=== PATIENT | male | born 1985 | race Caucasian/White ===

== ENCOUNTER 2019-03-08 07:14 | Inpatient (IN) | payer OTHER ==
[~2019-03-08] VITALS: Ht 190.5 cm; Wt 97.1 kg
[2019-03-08] VITALS (18 sets, daily range): BP systolic 103–157; BP diastolic 40–91
[2019-03-08 08:01] LABS: ABSOLUTE NEUTROPHILS 9.2 thou/uL (1.4-8.2); BASOPHILS 0.2 % (0.0-2.0); EOSINOPHILS 0.1 % (0.0-3.0); HEMOGLOBIN 16.7 gm/dL (14.0-18.0); LYMPHOCYTES 13.9 % (24.0-44.0); MCH 31.8 pg (26.0-34.0); MCHC 34.8 g/dL (28.0-37.0); MCV 91.2 fL (80.0-100.0); MONOCYTES 7.9 % (1.0-8.0); PLATELET COUNT 204 thou/uL (150-400); POLYS 77.9 % (36.0-66.0); RBC 5.26 mil/uL (4.50-6.00); RDW 13.7 % (10.5-14.5); WBC 11.9 thou/uL (4.0-11.0)
[2019-03-08 08:16] LABS: CALCIUM 10.4 mg/dL (8.5-10.1); CREATININE 1.5 mg/dL (0.7-1.3); POTASSIUM 4.1 mmol/L (3.5-5.1)
[2019-03-08 08:17] LABS: AMP/METHAMP POSITIVE (Negative); BARBITURATES Negative (Negative); BENZODIAZEPINES Negative (Negative); COCAINE Negative (Negative); METHADONE Negative (Negative); OPIATES Negative (Negative); PCP Negative (Negative)
--- NOTE | 2019-03-08 08:18 | NUR ---
IN PREP FOR INTUBATION ERP ORDERED 20 ETOMITADE, GIVEN AT APPROX 0809 AND 100 SUCCS GIVEN IMMEDIATELY AFTER
[2019-03-08 08:32] LABS: ALBUMIN 4.9 g/dL (3.4-5.0); MAGNESIUM 2.2 mg/dL (1.8-2.4); SALICYLATE 2.8 mg/dL (2.8-20.0); TOTAL BILIRUBIN 1.6 mg/dL (<0.1-1.0); TOTAL PROTEIN 8.2 g/dL (6.4-8.2)
[2019-03-08 08:41] LABS: BE(vivo) -4.3 mmol/L (-2 to +3); HCO3 22.5 mmol/L (22.0-26.0); PCO2 47.6 mmHg (35.0-45.0); PO2 265.6 mmHg (80.0-100.0); pH 7.293 (7.360-7.450); sO2 99.5 % (92.0-98.0)
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
--- NOTE | 2019-03-08 17:58 | NUR ---
PT ARRIVED FROM ED AT APPROX 1130. PT IS ON VENT WITH SEDATION AND IN SOFT WRIST RESTRAINTS. ED STATED ANKLE RESTRAINTS WERE REMOVED BEFORE ARRIVAL TO ICU. RCIEVED NEW ORDER FOR WRIST ONLY RESTRAINTS. VSS AND PT IS ABLE TO MAINTAIN 02 SAT >90 ON VENT SETTINGS. ASSESSMENT CHARTED. COMPLETED ADMISSION TO BEST OF ABILITY. PT UNABLE TO ANSWER QUESTIONS AT THIS TIME AND NO KNOWN FAMILY AT THIS TIME. AT APPROX 1400, VENT ALARM BEGAN TO SAUND AND WHEN RN ENTERED ROOM, PT HAS EXTUBATED HIMSELF. VSS. AIRWAY INTACT AND UNCOMPROMISED. PT PLACED ON 10L NC BY RT. PHYSICIAN NOTIFIED. SEDATION STOPPED, INCIDENT REPORT FILED. PT CALM BUT DOES NOT MAKE SENSE WHEN ASKED QUESTIONS. PT BEGAN TO GET VERY AGITATED, KICKING, AND YELLING. PRECEDEX GTT STARTED. WILL CONTINUE TO TITRATE. PT REMAINS IN RESTRAINTS FOR SAFETY. GOGO COATES DD. WILL CONTINUE TO MONITOR.
[2019-03-09] VITALS (18 sets, daily range): BP systolic 104–135; BP diastolic 52–86
--- NOTE | 2019-03-09 00:05 | NUR ---
Pt severe agitation with tremors with hallucinations with possible withdrawels from etoh unknown d/t pt's confused psychosis. Renetta Posey paged at [phone] 03/08/19 for orders for CWAL protocol. CWAL protocol initiated with provider aware.
[2019-03-09 06:09] LABS: CREATININE 1.2 mg/dL (0.7-1.3); POTASSIUM 4.4 mmol/L (3.5-5.1)
--- NOTE | 2019-03-09 09:01 | EKG ---
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 : 1985 Requested By: Junior Hope Order Number: [id number] MD: Carmelo Carvalho Measurements Intervals [place] Rate: 142 P: 49 MO: 106 QRS: 89 QRSD: 107 T: 54 QT: 394 QTc: 606 Interpretive Statements Sinus tachycardia RSR' in V1 or V2, probably normal variant Prolonged QT interval No previous ECG available for comparison Electronically Signed On 03-09-2019 9:01:21 CDT by Carmelo Carvalho [email or web address] ��������������������������������������������� <ELECTRONICALLY SIGNED> ���������������������������������������� By: Carmelo Carvalho MD, [facility] ��������������������������������������������� 03/09/19900 7 7 Carmelo Carvalho MD, [facility] /EPI
--- NOTE | 2019-03-09 10:37 | NUR ---
CARMEN was provided with name and contact info for pt's mother, Maria Isabel ([phone]) by nursing. Pt extubated himself yesterday afternoon. Pt unable to answer questions at this time, due to condition. Pt's photo ID and [place] [employer] ID card on chart. SW spoke with Maria Isabel via phone. Pt's mother was aware of circumstances that led to pt being brought to [facility]. Pt's mother states that pt has a hx of bipolar and depression. Pt was diagnosed when he was a teenager. Pt was living in transitional housing in [facility] and moved into his own apt about 2 weeks ago. Pt's mother states she does not know his new address. Pt's mother does state that pt does not have health insurance. He has been going to a clinic in [facility] for Hep C medical care and medications. Pt's mother states that pt's former girlfriend, Ariadne, should not be given info regarding pt's condition. They met while in rehab and broke up Aug/Sep of last year. Pt's mother reports that she spoke with pt about a week ago via phone, and he appeared to be impaired at that time. Per pt's mother, pt becomes agressive and agitated when he is under the influence of drugs/ETOH. CARMEN provided pt's mother with contact info, and she will contact CARMEN with pt's SS# and contact info for the transitional housing, where pt was staying. CARMEN is following to assist as needed with discharge planning.
--- NOTE | 2019-03-09 17:00 | EKG ---
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 : 1985 Requested By: Ariana Nesbitt Order Number: [id number] MD: Carmelo Carvalho Measurements Intervals [place] Rate: 60 P: 47 CA: 196 QRS: 43 QRSD: 112 T: 27 QT: 428 QTc: 428 Interpretive Statements Sinus rhythm Right ventricular conduction delay No previous ECGs available for comparison Electronically Signed On 03-09-2019 17:00:01 CDT by Carmelo Carvalho [email or web address] ��������������������������������������������� <ELECTRONICALLY SIGNED> ���������������������������������������� By: Carmelo Carvalho MD, [facility] ��������������������������������������������� 03/09/19 1700 1026 1026 Carmelo Carvalho MD, [facility] /EPI
--- NOTE | 2019-03-09 20:05 | NUR ---
ASSUMED CARE OF PT AT APPROX 0700. PT IS ALERT AND NOT ORIENTED. PT IS REPETITIVE AND PARANOID. PT IS RESTING MOST OF DAY WITH PRECEDEX GTT IN PLACE BUT EASILY ARROUSED, WHEN HE THEN STARTS MAKING CONVERSATION THAT DOES NOT MAKE SENSE. CONTACTED MOTHER AND LET HER KNOW SON WAS IN HOSPITAL AND UPDATED ON POC. SHE CAME TO VISIT TODAY WITH PT FATHER. PT WAS HAPPT TO SEE THEM. PT VERY VERY THIRSTY ALL DAY BUT NOT INTERESTED IN FOOD. REMAINS IN RESTRAINTS FOR SAFETY. GOGO TO DD. WILL CONT. TO MONITOR.
[2019-03-10] VITALS (25 sets, daily range): BP systolic 91–129; BP diastolic 36–66
[2019-03-10 06:13] LABS: ALBUMIN 3.2 g/dL (3.4-5.0); CALCIUM 8.6 mg/dL (8.5-10.1); CREATININE 0.8 mg/dL (0.7-1.3); MAGNESIUM 2.3 mg/dL (1.8-2.4); POTASSIUM 3.7 mmol/L (3.5-5.1); TOTAL PROTEIN 5.8 g/dL (6.4-8.2)
--- NOTE | 2019-03-10 06:34 | NUR ---
Pt rested well through the night with precedex gtt going. PRN ativan given for breakthrough restlessness with desired effect achieved. VS stable and SpO2 adequate on 4L of O2. Taking large amounts of PO fluids with no c/o nausea and no BM observed this shift. Urine output scant and stephenson catheter irrigated with good return of the saline flush. Will report to next RN. Am lab results noted, continue with POC.
--- NOTE | 2019-03-10 10:41 | NUR ---
CARMEN received call from Ankur at the [facility], who states pt was at their facility in October of 2018 and left unannounced. Pt has a balance of $240 that would need to be paid prior to pt returning if pt is agreeable. [facility] would be able to accept him back. CARMEN reviewed chart and spoke with nursing. Pt is more alert today. CARMEN met with pt and his parents at bedside. SS# provided to CARMEN to send to registration. Pt able to answer questions, but was also very drowsy. Pt's family states that pt has a longstanding hx of depression and bipolar and is non-compliant with taking his medications. Pt has been to outpatient treatment facilities in the past in the [facility]. Pt has not been to an inpt facility. Pt and family are agreeable with inpt treatment if recommended. Pt states he would be agreeable with going back to the [facility]. Pt states he does not have health insurance, but he does have a [employer] Card that he can use at [facility] [place] medications/treatment. Pt's family states that pt and his girlfriend, Ariadne, broke up last fall. Pt's girlfriend had an without his consent. Pt became very tearful speaking of the events. SW notified psychiatrist of pt being more alert and family being at the bedside. Hoping psych will be able to see pt and family. Pt's family need to leave around 1500. CARMEN is following to assist as needed with discharge planning.
--- NOTE | 2019-03-10 14:34 | EEG ---
[facility] [place] [address] ELECTROENCEPHALOGRAM Name: OSWALD MCGOWAN Room #: 239-P ADM IN M.R.#: [id number] ������������������ Admission: 03/08/19 ������������������ Attend Phys: Ariana Owens Discharge: ������������������ Date of : 87 Report #: [id number] ����������������������������������������������������������������� [id number] THIS REPORT FOR: //name// CC: FAM unknown Ariana Nesbitt DATE OF SERVICE: 03/08/2019 This patient is being evaluated for altered mental status. EEG was done by placing the electrode by standard 10-20 system of electrode placement. Both referential and sequential montages were used for recording. Background activity in this patient's EEG is about 9 Hz and 30 microvolt. A lot of artifact is present most of it is because of the patient's lack of cooperation. Throughout the record, no active epileptiform activity was noticed. IMPRESSION: This patient's EEG is intermixed with a lot of artifact because the patient will not cooperate. I do not see any active epileptiform activity in this patient's EEG. ���������������������������������������� <ELECTRONICALLY SIGNED> ���������������������������������������� By: Ludwig Crump MD ��������������������������������������������� 03/10/19 1434 10 1631 Ludwig Crump MD /nt
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
--- NOTE | 2019-03-10 21:06 | NUR ---
PT HAS BEEN FEELING ANXIOUS STILL FOR THE LAST HOUR. PT HAS BEEN IN BED WITH HANDS RAISED AND BENT AT [place] SAYING THEE OUR FATHER PRAYER AND STARING AT THE CEILING AT TIMES AND WITH EYES CLOSED. WENT TO CHECK ON HIM MULTIPLE TIMES TO SEE IF HE NEEDED ANYTHING OR HOW I CAN BEST HELP HIM. STATES HE IS DOING OKAY BUT TO ME DOESN'T APPEAR TO BE EMOTIONALLY OR PSYCHOLOGICALLY OKAY. CALL PLACED TO BAILEE SALAZAR FOR ADDITIONAL MEDICATION FOR PT.
[2019-03-11] VITALS (20 sets, daily range): BP systolic 107–153; BP diastolic 49–79
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
[2019-03-11 05:37] LABS: ALBUMIN 2.4 g/dL (3.4-5.0); CALCIUM 7.7 mg/dL (8.5-10.1); CREATININE 0.9 mg/dL (0.7-1.3); PHOSPHORUS 3.1 mg/dL (2.5-4.9); POTASSIUM 3.3 mmol/L (3.5-5.1)
--- NOTE | 2019-03-11 09:18 | EKG ---
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 : 1985 Requested By: Ariana Nesbitt Order Number: [id number] MD: Carmelo Carvalho Measurements Intervals [place] Rate: 75 P: 31 NE: 167 QRS: 46 QRSD: 114 T: 6 QT: 392 QTc: 438 Interpretive Statements Sinus rhythm No significant abnormality Baseline wander in lead(s) V4 Compared to ECG 03/09/2019 10:26:42 No significant changes Electronically Signed On 03-11-2019 9:18:01 CDT by Carmelo Carvalho [email or web address] ��������������������������������������������� <ELECTRONICALLY SIGNED> ���������������������������������������� By: Carmelo Carvalho MD, [facility] ��������������������������������������������� 03/[birth year]/1918 1657 165 Carmelo Carvalho MD, [facility] /EPI
--- NOTE | 2019-03-11 16:14 | NUR ---
CARMEN reviewed chart and spoke with nursing and attending physician. Pt is progressing towards goals for discharge. CARMEN met with pt at bedside to discuss plans at time of discharge. Pt is agreeable with treatment when discharged. Pt is hoping to be able to go to the [facility]. CARMEN provided info for contacting the [facility]. Pt states he will be able to pay his outstanding balance and is familiar with the [facility]. CARMEN spoke with pt's mother via phone to provide update. Pt's mother states, she woule prefer pt go to an inpt psych facility for medication mgmt prior to going to the [facility]. CARMEN discussed with psych. CARMEN is following to assist as needed with discharge planning.
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
[2019-03-12 00:40] VITALS: BP 131/68
--- NOTE | 2019-03-12 02:31 | NUR ---
PT ARRIVED APPROX. 0000. REASSESSMENT COMPLETE. VSS. PT EDUCATIN/ORIENTATION TO ROOM GIVEN. PT DENEIS PAIN, DENIES N/V. REPORTS SOME DIZZINESS. PT CALL LIGHT AND PERSONAL BELONINGS WITHIN REACH. WILL CONTINUE POC UNTIL EOS.
[2019-03-12 04:55] VITALS: BP 108/50
[2019-03-12 08:00] VITALS: BP 119/68
[2019-03-12 16:24] VITALS: BP 119/68
[2019-03-12 16:34] VITALS: BP 118/60
--- NOTE | 2019-03-12 17:14 | NUR ---
Following for d/c planning needs. Received d/c order from physician. Spoke with pt and he said he would contact [facility]. Pt said he called [facility] and they do not have a bed available. Pt called his mother in [place] and she drove up to take him home with her today. RN spoke with physician and received order for d/c home with mother. Pt and mother plan to follow up with [facility] and mother will take him to facility when bed becomes available. No other needs indicated.
--- NOTE | 2019-03-12 17:29 | NUR ---
ASSUMED CARE AT 0700, SHIFT ASSESSMENT DONE, MEDS GIVEN, VSS. DISCHARGE ORDER RECEIVED, PATIENT WAS SUPPOSED TO GO TO A INPATIENT PSYCH UNIT, [facility]. BUT LATER ON IN THE DAY PATIENT'S MOM CAME FROM [place] AND WANTED TO PICK HIM UP TO TAKE HIM BACK HOME. DR SMITH WAS NOTIFIED AND HE AGREEED WITH THE PLAN. HE CHANGED THE DISCHARGE TO HOME. DISCHARGE PAPERWORK WAS GIVEN. PERIPHERAL IV WAS TAKEN OUT. PATIENT LEFT WITH MOM AT 1645.
== END 2019-03-12 17:33 | disposition home or self-care (01) | DRG 896 ==
LOC: ER 07:14 → ICU 08:48 → EROBS 08:48 → ICU 11:19 → 4E 03-11 23:50
PROVIDERS: Emergency Medicine; ADMIT Hospitalist
PROC: 5A1935Z Respiratory Ventilation, Less than 24 Consecutive Hours (ICD-10-PCS; principal; 2019-03-08)
PROC: 0BH17EZ Insertion of Endotracheal Airway into Trachea, Via Natural or Artificial Opening (ICD-10-PCS; principal; 2019-03-08)
DX: F15.159 Other stimulant abuse with stimulant-induced psychotic disorder, unspecified (principal); J96.00 Acute respiratory failure, unspecified whether with hypoxia or hypercapnia; M62.82 Rhabdomyolysis; F23 Brief psychotic disorder; E87.0 Hyperosmolality and hypernatremia; R41.0 Disorientation, unspecified; B19.20 Unspecified viral hepatitis C without hepatic coma; I45.81 Long QT syndrome; E87.8 Other disorders of electrolyte and fluid balance, not elsewhere classified; F31.9 Bipolar disorder, unspecified
CPT/HCPCS: 10078; 10783